=== PATIENT | female | born 1940 | race Caucasian/White ===

== ENCOUNTER 2018-11-05 18:41 | Inpatient (IN) | payer MEDICARE, BC, OTHER ==
[2018-11-06 01:03] LABS: WHITE BLOOD COUNT 8.6 10^3/ul (4.8-10.8)
[2018-11-06 01:03] LABS: ABNORMAL IP MESSAGE 1; HEMATOCRIT 35.8 % (37.0-47.0); HEMOGLOBIN 11.7 g/dl (12.0-16.0); MEAN CORPUSCULAR HEMOGLOBIN 29.7 pg (29.0-33.0); MEAN CORPUSCULAR HGB CONC 32.7 g/dl (32.0-37.0); MEAN CORPUSCULAR VOLUME 90.9 fl (82.0-101.0); MEAN PLATELET VOLUME 11.7 fl (7.4-10.4); PLATELET COUNT 63 10^3/UL (140-415); RED BLOOD COUNT 3.94 10^6/ul (4.20-5.40); RED CELL DISTRIBUTION WIDTH 15.2 % (11.5-14.5)
[2018-11-06 01:04] LABS: POSITIVE DIFF @See below
[2018-11-06 01:05] LABS: ADD MAN DIFF? YES
[2018-11-06 01:20] LABS: ALANINE AMINOTRANSFERASE 25 IU/L (13-69); ALBUMIN 3.3 g/dl (3.3-4.9); ALKALINE PHOSPHATASE 117 IU/L (42-121); ANION GAP 9 (5-13); ASPARTATE AMINO TRANSFERASE 29 IU/L (15-46); BILIRUBIN,INDIRECT 0.4 mg/dl (0-1.1); BILIRUBIN,TOTAL 0.4 mg/dl (0.2-1.3); BLOOD UREA NITROGEN 34 mg/dl (7-20); CALCIUM 7.7 mg/dl (8.4-10.2); CARBON DIOXIDE 29 mmol/L (21-31); CHLORIDE 98 mmol/L (97-110); CREATININE 1.36 mg/dl (0.44-1.00); GLUCOSE 197 mg/dl (70-220); POTASSIUM 4.3 mmol/L (3.5-5.1); SODIUM 136 mmol/L (135-144); TOTAL PROTEIN 6.6 g/dl (6.1-8.1)
[2018-11-06 01:25] LABS: INR 1.17; PROTIME 15.1 Sec (11.9-14.9); PT RATIO 1.2
[2018-11-06 01:26] LABS: PARTIAL THROMBOPLASTIN TIME 30.8 Sec (23.0-35.0)
[2018-11-06] MEDS: SOD CHLORIDE 0.9% 1,000 ML IV (01:27)
[2018-11-06 01:31] LABS: TROPONIN-I < 0.012 ng/ml (0.000-0.120)
[2018-11-06 01:33] LABS: BAND NEUTROPHILS #M 1.1 10^3/ul (0.0-0.6); BAND NEUTROPHILS % (M) 13 % (0-4); EOSINOPHILS % (M) 1 % (0-7); GIANT THROMBO% (M) 1 % (0-0); LYMPHOCYTES #M 0.4 10^3/ul (0.8-2.9); LYMPHOCYTES % (M) 5 % (15-51); METAMYELOCYTES %M 1 % (0-0); MONOCYTE #M 0.8 10^3/ul (0.3-0.9); MONOCYTES % (M) 10 % (0-11); PLATELET ESTIMATE SIG DECREASED; REACTIVE LYMPHOCYTES #M 0.3 10^3/ul (0.0-0.0); REACTIVE LYMPHOCYTES% (M) 4 % (0-0); SEG NEUT #M 5.8 10^3/ul (1.6-7.5); SEGMENTED NEUTROPHILS (M) % 66 % (39-77); SMUDGE%M 18 % (0-0)
[2018-11-06 02:20] LABS: ADD UMIC YES; UR AMORPHOUS CRYSTAL FEW /HPF (NONE SEEN); UR ASCORBIC ACID NEGATIVE (NEGATIVE); UR BACTERIA FEW /HPF (NONE SEEN); UR BILIRUBIN (Dip) NEGATIVE (NEGATIVE); UR BLOOD (Dip) 2+ mg/dL (NEGATIVE); UR CLARITY SLIGHTLY CLOUDY (CLEAR); UR COLOR YELLOW (YELLOW); UR GLUCOSE (Dip) NEGATIVE (NEGATIVE); UR KETONES (Dip) NEGATIVE (NEGATIVE); UR LEUKOCYTE ESTERASE (Dip) 3+ Leu/ul (NEGATIVE); UR NITRITE (Dip) NEGATIVE (NEGATIVE); UR NONSQUAMOUS EPITHELIAL CELL 1 /HPF (NONE SEEN); UR RBC 23 /HPF (0-5); UR SPECIFIC GRAVITY (Dip) 1.014 (1.003-1.030); UR SQUAMOUS EPITHELIAL CELL FEW /HPF (FEW); UR TOTAL PROTEIN (Dip) 2+ mg/dl (NEGATIVE); UR TRANSITIONAL EPI CELL FEW /HPF (NONE SEEN); UR UROBILINOGEN (Dip) 1+ mg/dL (NEGATIVE); UR WBC 147 /HPF (0-5)
[2018-11-06] MEDS: ACETAMINOPHEN 325 MG TAB PO ×3 (06:45→21:15)
[2018-11-06] MEDS ORDERED: CEFTRIAXONE 1 GM/50 ML (PMX) 50 ML IVPB (07:01)
[2018-11-06] MEDS: ALBUTEROL/IPRATROPIUM (NEB) 3 ML AMP HHN ×5 (07:21→21:08)
[2018-11-06 07:58] LABS: LACTIC ACID 3.7 mmol/L (0.5-2.0)
[2018-11-06] MEDS: NS + KCL 20 MEQ 1,000 ML IV ×2 (10:33→23:20)
[2018-11-06] MEDS: CEFTRIAXONE 1 GM/50 ML (PMX) 50 ML IVPB (10:34)
[2018-11-06] MEDS: METOPROLOL (XL) 100 MG TAB PO (10:48)
[2018-11-06] MEDS: LOSARTAN 50 MG TAB PO (10:49)
[2018-11-06] MEDS: AZITHROMYCIN 500MG/NS (PMX) 250 ML IVPB (13:21)
[2018-11-06 15:27] LABS: LACTIC ACID 1.4 mmol/L (0.5-2.0)
[2018-11-06 16:12] LABS: HAAIG REFLEX REFLEX FILED
[2018-11-06 16:21] LABS: PLATELET COUNT 57 10^3/UL (140-415)
[2018-11-06 16:43] LABS: INR 1.31; PARTIAL THROMBOPLASTIN TIME 30.4 Sec (23.0-35.0); PROTIME 16.5 Sec (11.9-14.9); PT RATIO 1.3
[2018-11-06 16:47] LABS: LACTATE DEHYDROGENASE 694 IU/L (313-618)
[2018-11-06 17:05] LABS: D-DIMER > 10000.00 ng/ml (<460)
[2018-11-06 17:07] LABS: HEPATITIS B SURFACE ANTIGEN NEGATIVE (NEGATIVE)
[2018-11-06 17:25] LABS: HEPATITIS B CORE ANTIBODY NEGATIVE (NEGATIVE); HEPATITIS C VIRAL ANTIBODY NEGATIVE (NEGATIVE); HIV 1&2 ANTIBODY NEGATIVE (NEGATIVE)
[2018-11-06 17:30] LABS: THROMBIN TIME 16.2 SEC (13.8-19.1)
[2018-11-06 17:51] LABS: FIBRIN SPLIT PRODUCT >10 and <40 ug/ml (<10)
[2018-11-07] MEDS: ACETAMINOPHEN 325 MG TAB PO (04:22)
[2018-11-07 06:12] LABS: WHITE BLOOD COUNT 10.1 10^3/ul (4.8-10.8)
[2018-11-07 06:12] LABS: ABNORMAL IP MESSAGE 1; HEMATOCRIT 30.6 % (37.0-47.0); HEMOGLOBIN 10.1 g/dl (12.0-16.0); MEAN CORPUSCULAR HEMOGLOBIN 29.6 pg (29.0-33.0); MEAN CORPUSCULAR VOLUME 89.7 fl (82.0-101.0); MEAN PLATELET VOLUME 12.3 fl (7.4-10.4); PLATELET COUNT 58 10^3/UL (140-415); RED BLOOD COUNT 3.41 10^6/ul (4.20-5.40); RED CELL DISTRIBUTION WIDTH 15.4 % (11.5-14.5)
[2018-11-07 06:32] LABS: ADD MAN DIFF? YES; POSITIVE DIFF @See below
[2018-11-07 07:04] LABS: ALANINE AMINOTRANSFERASE 36 IU/L (13-69); ALBUMIN 2.5 g/dl (3.3-4.9); ALBUMIN/GLOBULIN RATIO 0.83; ALKALINE PHOSPHATASE 126 IU/L (42-121); ANION GAP 5 (5-13); ASPARTATE AMINO TRANSFERASE 57 IU/L (15-46); BILIRUBIN,INDIRECT 0.3 mg/dl (0-1.1); BILIRUBIN,TOTAL 0.3 mg/dl (0.2-1.3); BLOOD UREA NITROGEN 27 mg/dl (7-20); CARBON DIOXIDE 24 mmol/L (21-31); CHLORIDE 111 mmol/L (97-110); CREATININE 1.05 mg/dl (0.44-1.00); GLUCOSE 99 mg/dl (70-220); POTASSIUM 4.2 mmol/L (3.5-5.1); SODIUM 140 mmol/L (135-144); TOTAL PROTEIN 5.5 g/dl (6.1-8.1)
[2018-11-07 07:44] LABS: BAND NEUTROPHILS #M 2.4 10^3/ul (0.0-0.6); BAND NEUTROPHILS % (M) 24 % (0-4); EOSINOPHILS % (M) 2 % (0-7); GIANT THROMBO% (M) 1 % (0-0); HYPOCHROMASIA 1+ (0-0); LYMPHOCYTES #M 0.2 10^3/ul (0.8-2.9); LYMPHOCYTES % (M) 2 % (15-51); MONOCYTE #M 0.5 10^3/ul (0.3-0.9); MONOCYTES % (M) 5 % (0-11); PLATELET ESTIMATE SIG DECREASED; REACTIVE LYMPHOCYTES #M 0.2 10^3/ul (0.0-0.0); REACTIVE LYMPHOCYTES% (M) 2 % (0-0); SEG NEUT #M 6.8 10^3/ul (1.6-7.5); SEGMENTED NEUTROPHILS (M) % 65 % (39-77); SMUDGE%M 7 % (0-0); SPHEROCYTES 1+ (0-0)
[2018-11-07] MEDS: LOSARTAN 50 MG TAB PO (08:45)
[2018-11-07] MEDS: CEFTRIAXONE 1 GM/50 ML (PMX) 50 ML IVPB (08:45)
[2018-11-07] MEDS: METOPROLOL (XL) 100 MG TAB PO ×2 (08:46→20:28)
[2018-11-07] MEDS: ALBUTEROL/IPRATROPIUM (NEB) 3 ML AMP HHN ×4 (08:48→20:39)
[2018-11-07] MEDS: HYDROCODONE/APAP (5/325) TAB PO ×2 (10:29→18:34)
[2018-11-07] MEDS: AZITHROMYCIN 500MG/NS (PMX) 250 ML IVPB (10:30)
[2018-11-07] MEDS: NS + KCL 20 MEQ 1,000 ML IV (11:59)
[2018-11-07] MEDS: ONDANSETRON 4 MG INJ IV (12:38)
[2018-11-07] MEDS: PANTOPRAZOLE 40 MG INJ IV (15:29)
[2018-11-08] MEDS: NS + KCL 20 MEQ 1,000 ML IV ×2 (02:25→16:22)
[2018-11-08] MEDS: PANTOPRAZOLE 40 MG INJ IV (05:30)
[2018-11-08] MEDS: HYDROCODONE/APAP (5/325) TAB PO ×2 (05:35→12:15)
[2018-11-08 06:21] LABS: WHITE BLOOD COUNT 12.8 10^3/ul (4.8-10.8)
[2018-11-08 06:21] LABS: ABNORMAL IP MESSAGE 1; HEMATOCRIT 34.4 % (37.0-47.0); HEMOGLOBIN 11.1 g/dl (12.0-16.0); MEAN CORPUSCULAR HEMOGLOBIN 29.4 pg (29.0-33.0); MEAN CORPUSCULAR HGB CONC 32.3 g/dl (32.0-37.0); MEAN PLATELET VOLUME 12.2 fl (7.4-10.4); PLATELET COUNT 70 10^3/UL (140-415); RED BLOOD COUNT 3.78 10^6/ul (4.20-5.40)
[2018-11-08 06:28] LABS: ADD MAN DIFF? YES; POSITIVE DIFF @See below
[2018-11-08 06:38] LABS: ANION GAP 6 (5-13); BLOOD UREA NITROGEN 18 mg/dl (7-20); CARBON DIOXIDE 23 mmol/L (21-31); CHLORIDE 114 mmol/L (97-110); CREATININE 0.99 mg/dl (0.44-1.00); GLUCOSE 124 mg/dl (70-220); POTASSIUM 4.6 mmol/L (3.5-5.1); SODIUM 143 mmol/L (135-144)
[2018-11-08 07:34] LABS: ANISOCYTOSIS 1+ (0-0); BAND NEUTROPHILS #M 0.7 10^3/ul (0.0-0.6); BAND NEUTROPHILS % (M) 6 % (0-4); BASOPHIL #M 0.1 10^3/ul (0.0-0.0); BASOPHILS % (M) 1 % (0-2); EOSINOPHILS % (M) 1 % (0-7); LYMPHOCYTES #M 0.7 10^3/ul (0.8-2.9); LYMPHOCYTES % (M) 6 % (15-51); MONOCYTE #M 0.6 10^3/ul (0.3-0.9); MONOCYTES % (M) 5 % (0-11); MYELOCYTES #M 0.2 10^3/ul (0.0-0.0); MYELOCYTES % (M) 2 % (0-0); PLATELET ESTIMATE DECREASED; PLATELET MORPHOLOGY COMMENT @See below; POLYCHROMASIA 1+ (0-0); PROMYELOCYTES #M 0.1 10^3/ul (0-0); PROMYELOCYTES % (M) 1 % (0-0); SEG NEUT #M 10.1 10^3/ul (1.6-7.5); SEGMENTED NEUTROPHILS (M) % 78 % (39-77); SMUDGE%M 34 % (0-0)
[2018-11-08] MEDS: CEFTRIAXONE 1 GM/50 ML (PMX) 50 ML IVPB (08:18)
[2018-11-08] MEDS: METOPROLOL (XL) 100 MG TAB PO ×2 (08:19→20:58)
[2018-11-08] MEDS: LOSARTAN 50 MG TAB PO (08:19)
[2018-11-08] MEDS: ALBUTEROL/IPRATROPIUM (NEB) 3 ML AMP HHN ×4 (09:03→20:26)
[2018-11-08] MEDS: AZITHROMYCIN 500MG/NS (PMX) 250 ML IVPB (10:07)
[2018-11-08 14:36] LABS: HAPTOGLOBIN 142 mg/dL (43-212)
[2018-11-08] MEDS: DOCUSATE SODIUM 100 MG CAP PO ×2 (16:55→20:56)
[2018-11-09 05:22] LABS: ADD MAN DIFF? NO
[2018-11-09 05:26] LABS: ABNORMAL IP MESSAGE 1; BASOPHILS % 0.4 % (0.0-2.0); EOSINOPHILS # 0.2 10^3/ul (0.0-0.5); EOSINOPHILS % 1.4 % (0.0-7.0); HEMOGLOBIN 9.2 g/dl (12.0-16.0); LYMPHOCYTES # 0.7 10^3/ul (0.8-2.9); LYMPHOCYTES % 5.9 % (15.0-51.0); MEAN CORPUSCULAR HGB CONC 32.9 g/dl (32.0-37.0); MEAN CORPUSCULAR VOLUME 91.2 fl (82.0-101.0); MONOCYTE # 1.3 10^3/ul (0.3-0.9); MONOCYTES % 11.4 % (0.0-11.0); NEUTROPHIL # 8.9 10^3/ul (1.6-7.5); NEUTROPHILS % 79.8 % (39.0-77.0); PLATELET COUNT 80 10^3/UL (140-415); RED BLOOD COUNT 3.07 10^6/ul (4.20-5.40); RED CELL DISTRIBUTION WIDTH 16.7 % (11.5-14.5)
[2018-11-09 05:26] LABS: WHITE BLOOD COUNT 11.1 10^3/ul (4.8-10.8)
[2018-11-09] MEDS: PANTOPRAZOLE 40 MG INJ IV (05:34)
[2018-11-09 06:25] LABS: POSITIVE DIFF @See below
[2018-11-09] MEDS: NS + KCL 20 MEQ 1,000 ML IV (06:34)
[2018-11-09 06:48] LABS: ANION GAP 3 (5-13); BLOOD UREA NITROGEN 17 mg/dl (7-20); CALCIUM 6.2 mg/dl (8.4-10.2); CARBON DIOXIDE 22 mmol/L (21-31); CHLORIDE 115 mmol/L (97-110); CREATININE 0.85 mg/dl (0.44-1.00); GLUCOSE 110 mg/dl (70-220); POTASSIUM 5.2 mmol/L (3.5-5.1); SODIUM 140 mmol/L (135-144)
[2018-11-09] MEDS: DOCUSATE SODIUM 100 MG CAP PO ×2 (08:58→20:50)
[2018-11-09] MEDS: METOPROLOL (XL) 100 MG TAB PO ×2 (08:59→20:51)
[2018-11-09] MEDS: LOSARTAN 50 MG TAB PO (08:59)
[2018-11-09] MEDS: CEFTRIAXONE 1 GM/50 ML (PMX) 50 ML IVPB (09:05)
[2018-11-09] MEDS: ALBUTEROL/IPRATROPIUM (NEB) 3 ML AMP HHN ×4 (09:12→20:45)
[2018-11-09] MEDS: AZITHROMYCIN 500MG/NS (PMX) 250 ML IVPB (10:12)
[2018-11-09] MEDS ORDERED: MAGNESIUM HYDROXIDE 30ML CUP PO (15:30)
[2018-11-09] MEDS: NYSTATIN SUSP 5 ML CUP PO ×2 (16:16→20:52)
[2018-11-09] MEDS: SOD CHLORIDE 0.9% 1,000 ML IV (16:16)
[2018-11-10 05:59] LABS: WHITE BLOOD COUNT 10.8 10^3/ul (4.8-10.8)
[2018-11-10 05:59] LABS: HEMATOCRIT 26.4 % (37.0-47.0); HEMOGLOBIN 8.7 g/dl (12.0-16.0); MEAN CORPUSCULAR HEMOGLOBIN 29.8 pg (29.0-33.0); MEAN CORPUSCULAR VOLUME 90.4 fl (82.0-101.0); MEAN PLATELET VOLUME 11.7 fl (7.4-10.4); PLATELET COUNT 106 10^3/UL (140-415); RED BLOOD COUNT 2.92 10^6/ul (4.20-5.40); RED CELL DISTRIBUTION WIDTH 16.5 % (11.5-14.5)
[2018-11-10] MEDS: PANTOPRAZOLE 40 MG INJ IV (06:04)
[2018-11-10 06:23] LABS: ADD MAN DIFF? YES
[2018-11-10 06:24] LABS: ANION GAP 4 (5-13); BLOOD UREA NITROGEN 16 mg/dl (7-20); CARBON DIOXIDE 20 mmol/L (21-31); CHLORIDE 112 mmol/L (97-110); CREATININE 0.83 mg/dl (0.44-1.00); GLUCOSE 109 mg/dl (70-220); POTASSIUM 4.3 mmol/L (3.5-5.1); SODIUM 136 mmol/L (135-144)
[2018-11-10] MEDS: SOD CHLORIDE 0.9% 1,000 ML IV (08:10)
[2018-11-10] MEDS: ALBUTEROL/IPRATROPIUM (NEB) 3 ML AMP HHN ×4 (08:57→20:35)
[2018-11-10] MEDS: NYSTATIN SUSP 5 ML CUP PO ×4 (09:29→20:51)
[2018-11-10] MEDS: LOSARTAN 50 MG TAB PO (09:29)
[2018-11-10] MEDS: FERROUS SULFATE (EC) 325 MG TAB PO ×2 (09:29→20:51)
[2018-11-10] MEDS: METOPROLOL (XL) 100 MG TAB PO ×2 (09:29→20:51)
[2018-11-10] MEDS: DOCUSATE SODIUM 100 MG CAP PO ×2 (09:29→20:51)
[2018-11-10] MEDS: CEFTRIAXONE 1 GM/50 ML (PMX) 50 ML IVPB (09:29)
[2018-11-10 10:02] LABS: ANISOCYTOSIS 1+ (0-0); BAND NEUTROPHILS #M 0.5 10^3/ul (0.0-0.6); BAND NEUTROPHILS % (M) 5 % (0-4); EOSINOPHILS % (M) 3 % (0-7); GIANT THROMBO% (M) 2 % (0-0); LYMPHOCYTES #M 0.2 10^3/ul (0.8-2.9); LYMPHOCYTES % (M) 2 % (15-51); METAMYELOCYTES #M 0.1 10^3/ul (0.0-0.0); METAMYELOCYTES %M 1 % (0-0); MONOCYTE #M 0.5 10^3/ul (0.3-0.9); MONOCYTES % (M) 5 % (0-11); PLATELET ESTIMATE DECREASED; SEG NEUT #M 9.1 10^3/ul (1.6-7.5); SEGMENTED NEUTROPHILS (M) % 84 % (39-77); SMUDGE%M 46 % (0-0)
[2018-11-10] MEDS: GUAIFENESIN 20 MG/ML 5ML CUP PO (12:33)
[2018-11-10] MEDS: FUROSEMIDE 20 MG INJ IV (12:55)
[2018-11-10] MEDS: AZITHROMYCIN 500MG/NS (PMX) 250 ML IVPB (14:33)
[2018-11-11 04:54] LABS: ADD MAN DIFF? NO
[2018-11-11 05:00] LABS: BASOPHILS % 0.2 % (0.0-2.0); EOSINOPHILS # 0.3 10^3/ul (0.0-0.5); EOSINOPHILS % 2.9 % (0.0-7.0); HEMATOCRIT 26.4 % (37.0-47.0); HEMOGLOBIN 8.9 g/dl (12.0-16.0); LYMPHOCYTES % 9.5 % (15.0-51.0); MEAN CORPUSCULAR HEMOGLOBIN 29.9 pg (29.0-33.0); MEAN CORPUSCULAR HGB CONC 33.7 g/dl (32.0-37.0); MEAN CORPUSCULAR VOLUME 88.6 fl (82.0-101.0); MEAN PLATELET VOLUME 11.6 fl (7.4-10.4); MONOCYTE # 1.4 10^3/ul (0.3-0.9); MONOCYTES % 12.7 % (0.0-11.0); NEUTROPHIL # 7.8 10^3/ul (1.6-7.5); NEUTROPHILS % 72.8 % (39.0-77.0); PLATELET COUNT 131 10^3/UL (140-415); RED BLOOD COUNT 2.98 10^6/ul (4.20-5.40)
[2018-11-11 05:00] LABS: WHITE BLOOD COUNT 10.8 10^3/ul (4.8-10.8)
[2018-11-11] MEDS: PANTOPRAZOLE 40 MG INJ IV (05:16)
[2018-11-11 05:23] LABS: ANION GAP 7 (5-13); BLOOD UREA NITROGEN 16 mg/dl (7-20); CARBON DIOXIDE 24 mmol/L (21-31); CHLORIDE 108 mmol/L (97-110); CREATININE 0.77 mg/dl (0.44-1.00); GLUCOSE 122 mg/dl (70-220); POTASSIUM 4.1 mmol/L (3.5-5.1); SODIUM 139 mmol/L (135-144)
[2018-11-11] MEDS: FERROUS SULFATE (EC) 325 MG TAB PO ×2 (08:33→21:30)
[2018-11-11] MEDS: DOCUSATE SODIUM 100 MG CAP PO ×2 (08:33→21:30)
[2018-11-11] MEDS: METOPROLOL (XL) 100 MG TAB PO ×2 (08:33→21:30)
[2018-11-11] MEDS: LOSARTAN 50 MG TAB PO (08:34)
[2018-11-11] MEDS: ALBUTEROL/IPRATROPIUM (NEB) 3 ML AMP HHN ×4 (09:09→20:07)
[2018-11-11] MEDS: NYSTATIN SUSP 5 ML CUP PO ×4 (09:43→21:32)
[2018-11-11] MEDS: CEFTRIAXONE 1 GM/50 ML (PMX) 50 ML IVPB (09:43)
[2018-11-11] MEDS: AZITHROMYCIN 500MG/NS (PMX) 250 ML IVPB (10:23)
[2018-11-12 05:06] LABS: ADD MAN DIFF? NO
[2018-11-12 05:11] LABS: WHITE BLOOD COUNT 11.3 10^3/ul (4.8-10.8)
[2018-11-12 05:11] LABS: ABNORMAL IP MESSAGE 1; BASOPHILS % 0.2 % (0.0-2.0); EOSINOPHILS # 0.3 10^3/ul (0.0-0.5); EOSINOPHILS % 2.6 % (0.0-7.0); HEMATOCRIT 26.1 % (37.0-47.0); HEMOGLOBIN 8.8 g/dl (12.0-16.0); LYMPHOCYTES % 8.5 % (15.0-51.0); MEAN CORPUSCULAR HEMOGLOBIN 29.6 pg (29.0-33.0); MEAN CORPUSCULAR HGB CONC 33.7 g/dl (32.0-37.0); MEAN CORPUSCULAR VOLUME 87.9 fl (82.0-101.0); MEAN PLATELET VOLUME 10.8 fl (7.4-10.4); MONOCYTE # 1.6 10^3/ul (0.3-0.9); MONOCYTES % 14.5 % (0.0-11.0); NEUTROPHIL # 8.2 10^3/ul (1.6-7.5); NEUTROPHILS % 72.3 % (39.0-77.0); PLATELET COUNT 163 10^3/UL (140-415); RED BLOOD COUNT 2.97 10^6/ul (4.20-5.40); RED CELL DISTRIBUTION WIDTH 16.5 % (11.5-14.5)
[2018-11-12 05:24] LABS: POSITIVE DIFF @See below
[2018-11-12 05:41] LABS: ANION GAP 4 (5-13); BLOOD UREA NITROGEN 10 mg/dl (7-20); CARBON DIOXIDE 24 mmol/L (21-31); CHLORIDE 109 mmol/L (97-110); CREATININE 0.75 mg/dl (0.44-1.00); GLUCOSE 133 mg/dl (70-220); POTASSIUM 3.8 mmol/L (3.5-5.1); SODIUM 137 mmol/L (135-144)
[2018-11-12] MEDS: PANTOPRAZOLE 40 MG INJ IV (06:07)
[2018-11-12] MEDS: HYDROCODONE/APAP (5/325) TAB PO (07:34)
[2018-11-12] MEDS: ALBUTEROL/IPRATROPIUM (NEB) 3 ML AMP HHN ×4 (08:36→21:12)
[2018-11-12] MEDS: FERROUS SULFATE (EC) 325 MG TAB PO ×2 (09:48→20:26)
[2018-11-12] MEDS: METOPROLOL (XL) 100 MG TAB PO ×2 (09:49→20:27)
[2018-11-12] MEDS: LOSARTAN 50 MG TAB PO (09:50)
[2018-11-12] MEDS: DOCUSATE SODIUM 100 MG CAP PO ×2 (09:50→20:26)
[2018-11-12] MEDS: CEFTRIAXONE 1 GM/50 ML (PMX) 50 ML IVPB (09:50)
[2018-11-12] MEDS: NYSTATIN SUSP 5 ML CUP PO ×4 (09:50→20:27)
[2018-11-12] MEDS: AZITHROMYCIN 500MG/NS (PMX) 250 ML IVPB (11:12)
[2018-11-12] MEDS: CEPHALEXIN 500 MG CAP PO ×2 (14:14→21:45)
[2018-11-13 04:57] LABS: ADD MAN DIFF? NO
[2018-11-13 05:07] LABS: BASOPHILS % 0.3 % (0.0-2.0); EOSINOPHILS # 0.2 10^3/ul (0.0-0.5); EOSINOPHILS % 2.3 % (0.0-7.0); HEMATOCRIT 27.4 % (37.0-47.0); HEMOGLOBIN 9.2 g/dl (12.0-16.0); LYMPHOCYTES % 10.2 % (15.0-51.0); MEAN CORPUSCULAR HEMOGLOBIN 29.9 pg (29.0-33.0); MEAN CORPUSCULAR HGB CONC 33.6 g/dl (32.0-37.0); MEAN PLATELET VOLUME 10.9 fl (7.4-10.4); MONOCYTE # 1.3 10^3/ul (0.3-0.9); MONOCYTES % 13.1 % (0.0-11.0); NEUTROPHIL # 7.2 10^3/ul (1.6-7.5); NEUTROPHILS % 72.8 % (39.0-77.0); PLATELET COUNT 200 10^3/UL (140-415); RED BLOOD COUNT 3.08 10^6/ul (4.20-5.40); RED CELL DISTRIBUTION WIDTH 16.1 % (11.5-14.5)
[2018-11-13 05:07] LABS: WHITE BLOOD COUNT 9.9 10^3/ul (4.8-10.8)
[2018-11-13] MEDS: CEPHALEXIN 500 MG CAP PO ×3 (06:02→21:56)
[2018-11-13] MEDS: PANTOPRAZOLE (EC) 40 MG TAB PO (06:02)
[2018-11-13] MEDS: METOPROLOL (XL) 100 MG TAB PO ×2 (08:09→21:53)
[2018-11-13] MEDS: FERROUS SULFATE (EC) 325 MG TAB PO ×2 (08:10→21:52)
[2018-11-13] MEDS: DOCUSATE SODIUM 100 MG CAP PO ×2 (08:10→21:52)
[2018-11-13] MEDS: NYSTATIN SUSP 5 ML CUP PO ×4 (08:10→21:53)
[2018-11-13] MEDS: LOSARTAN 50 MG TAB PO (08:11)
[2018-11-13] MEDS: ALBUTEROL/IPRATROPIUM (NEB) 3 ML AMP HHN ×4 (08:49→21:47)
[2018-11-13 10:34] LABS: OCCULT BLOOD STOOL NEGATIVE (NEGATIVE)
[2018-11-13] MEDS: GUAIFENESIN 20 MG/ML 5ML CUP PO (10:58)
[2018-11-13] MEDS: ACETAMINOPHEN 325 MG TAB PO (12:41)
[2018-11-14 05:56] LABS: ADD MAN DIFF? NO
[2018-11-14 05:57] LABS: WHITE BLOOD COUNT 8.7 10^3/ul (4.8-10.8)
[2018-11-14 05:57] LABS: BASOPHILS % 0.5 % (0.0-2.0); EOSINOPHILS # 0.2 10^3/ul (0.0-0.5); EOSINOPHILS % 1.8 % (0.0-7.0); HEMOGLOBIN 9.2 g/dl (12.0-16.0); LYMPHOCYTES # 1.2 10^3/ul (0.8-2.9); LYMPHOCYTES % 13.8 % (15.0-51.0); MEAN CORPUSCULAR HGB CONC 34.1 g/dl (32.0-37.0); MEAN CORPUSCULAR VOLUME 87.9 fl (82.0-101.0); MEAN PLATELET VOLUME 10.9 fl (7.4-10.4); MONOCYTE # 0.9 10^3/ul (0.3-0.9); MONOCYTES % 10.8 % (0.0-11.0); NEUTROPHIL # 6.2 10^3/ul (1.6-7.5); NEUTROPHILS % 71.6 % (39.0-77.0); PLATELET COUNT 246 10^3/UL (140-415); RED BLOOD COUNT 3.07 10^6/ul (4.20-5.40); RED CELL DISTRIBUTION WIDTH 16.4 % (11.5-14.5)
[2018-11-14] MEDS: PANTOPRAZOLE (EC) 40 MG TAB PO (06:10)
[2018-11-14] MEDS: CEPHALEXIN 500 MG CAP PO ×2 (06:10→14:14)
[2018-11-14 06:16] LABS: ANION GAP 8 (5-13); BLOOD UREA NITROGEN 8 mg/dl (7-20); CALCIUM 6.5 mg/dl (8.4-10.2); CARBON DIOXIDE 23 mmol/L (21-31); CHLORIDE 107 mmol/L (97-110); CREATININE 0.67 mg/dl (0.44-1.00); GLUCOSE 117 mg/dl (70-220); POTASSIUM 4.3 mmol/L (3.5-5.1); SODIUM 138 mmol/L (135-144)
[2018-11-14] MEDS: ALBUTEROL/IPRATROPIUM (NEB) 3 ML AMP HHN ×2 (07:51→13:35)
[2018-11-14] MEDS: NYSTATIN SUSP 5 ML CUP PO ×2 (08:39→14:14)
[2018-11-14] MEDS: LOSARTAN 50 MG TAB PO (08:39)
[2018-11-14] MEDS: DOCUSATE SODIUM 100 MG CAP PO (08:39)
[2018-11-14] MEDS: FERROUS SULFATE (EC) 325 MG TAB PO (08:39)
[2018-11-14] MEDS: METOPROLOL (XL) 100 MG TAB PO (08:39)
== END 2018-11-14 16:13 | disposition home or self-care (01) | DRG 872 ==
LOC: E/R 18:41 → PP2 11-13 18:31 → 6WM 11-06 03:13
DX: A41.51 Sepsis due to Escherichia coli [E. coli] (principal); N39.0 Urinary tract infection, site not specified; S37.021A Major contusion of right kidney, initial encounter; N17.9 Acute kidney failure, unspecified; D69.6 Thrombocytopenia, unspecified; M06.9 Rheumatoid arthritis, unspecified; D64.9 Anemia, unspecified; W01.0XXA Fall on same level from slipping, tripping and stumbling without subsequent striking against object, initial encounter; Y92.018 Other place in single-family (private) house as the place of occurrence of the external cause; I10 Essential (primary) hypertension; E87.5 Hyperkalemia; J40 Bronchitis, not specified as acute or chronic
CPT/HCPCS: 36415; 71045; 71110; 74176; 76775; 80048; 80053; 81001; 82270; 83010; 83605; 83615; 84484; 85025; 85049; 85362; 85378; 85384; 85610; 85670; 85730; 86703; 86704; 86709; 86803; 87040; 87086; 87340; 93005; 93971; 94640; 94664; 97116; 97162; 97530; 99285-25

== ENCOUNTER 2018-12-29 14:36 | Inpatient (IN) | payer MEDICARE, BC ==
[2018-12-29 15:46] LABS: ADD MAN DIFF? NO
[2018-12-29] MEDS: morphine 4 MG/ML VIAL IV ×2 (15:49→19:21)
[2018-12-29] MEDS: ONDANSETRON 4 MG INJ IV (15:49)
[2018-12-29] MEDS: SOD CHLORIDE 0.9% 500 ML IV (15:50)
[2018-12-29 15:56] LABS: ADD UMIC YES; UR ASCORBIC ACID NEGATIVE (NEGATIVE); UR BILIRUBIN (Dip) NEGATIVE (NEGATIVE); UR BLOOD (Dip) 1+ mg/dL (NEGATIVE); UR CLARITY CLEAR (CLEAR); UR COLOR STRAW (YELLOW); UR GLUCOSE (Dip) NEGATIVE (NEGATIVE); UR KETONES (Dip) NEGATIVE (NEGATIVE); UR LEUKOCYTE ESTERASE (Dip) NEGATIVE Leu/ul (NEGATIVE); UR NITRITE (Dip) NEGATIVE (NEGATIVE); UR RBC 6 /HPF (0-5); UR SPECIFIC GRAVITY (Dip) 1.009 (1.003-1.030); UR SQUAMOUS EPITHELIAL CELL FEW /HPF (FEW); UR TOTAL PROTEIN (Dip) NEGATIVE (NEGATIVE); UR UROBILINOGEN (Dip) NEGATIVE (NEGATIVE); UR WBC 2 /HPF (0-5)
[2018-12-29 16:10] LABS: PROTIME 14.3 Sec (11.9-14.9); PT RATIO 1.1
[2018-12-29 16:11] LABS: PARTIAL THROMBOPLASTIN TIME 30.1 Sec (23.0-35.0)
[2018-12-29 16:20] LABS: WHITE BLOOD COUNT 10.9 10^3/ul (4.8-10.8)
[2018-12-29 16:20] LABS: BASOPHILS % 0.3 % (0.0-2.0); EOSINOPHILS # 0.1 10^3/ul (0.0-0.5); EOSINOPHILS % 0.6 % (0.0-7.0); HEMATOCRIT 33.4 % (37.0-47.0); HEMOGLOBIN 10.9 g/dl (12.0-16.0); LYMPHOCYTES # 0.8 10^3/ul (0.8-2.9); LYMPHOCYTES % 7.5 % (15.0-51.0); MEAN CORPUSCULAR HEMOGLOBIN 28.9 pg (29.0-33.0); MEAN CORPUSCULAR HGB CONC 32.6 g/dl (32.0-37.0); MEAN CORPUSCULAR VOLUME 88.6 fl (82.0-101.0); MEAN PLATELET VOLUME 9.5 fl (7.4-10.4); MONOCYTES % 8.8 % (0.0-11.0); NEUTROPHIL # 8.9 10^3/ul (1.6-7.5); NEUTROPHILS % 82.1 % (39.0-77.0); PLATELET COUNT 234 10^3/UL (140-415); RED BLOOD COUNT 3.77 10^6/ul (4.20-5.40); RED CELL DISTRIBUTION WIDTH 14.3 % (11.5-14.5)
[2018-12-29 16:47] LABS: ALANINE AMINOTRANSFERASE 12 IU/L (13-69); ALBUMIN 3.7 g/dl (3.3-4.9); ALBUMIN/GLOBULIN RATIO 0.84; ALKALINE PHOSPHATASE 72 IU/L (42-121); ANION GAP 6 (5-13); ASPARTATE AMINO TRANSFERASE 26 IU/L (15-46); BILIRUBIN,INDIRECT 0.3 mg/dl (0-1.1); BILIRUBIN,TOTAL 0.3 mg/dl (0.2-1.3); BLOOD UREA NITROGEN 15 mg/dl (7-20); CALCIUM 9.7 mg/dl (8.4-10.2); CARBON DIOXIDE 33 mmol/L (21-31); CHLORIDE 94 mmol/L (97-110); CREATININE 0.84 mg/dl (0.44-1.00); GLUCOSE 117 mg/dl (70-220); POTASSIUM 4.4 mmol/L (3.5-5.1); SODIUM 133 mmol/L (135-144); TOTAL PROTEIN 8.1 g/dl (6.1-8.1)
[2018-12-29 16:58] LABS: TROPONIN-I < 0.012 ng/ml (0.000-0.120)
[2018-12-29] MEDS: SOD CHLORIDE 0.9% 100 ML (18:19)
[2018-12-29] MEDS: IOHEXOL 300MG/ML 150 ML BTL (18:19)
[2018-12-29] MEDS ORDERED: ONDANSETRON 4 MG INJ IV (19:00)
[2018-12-29] MEDS ORDERED: ACETAMINOPHEN 325 MG TAB PO (19:00)
[2018-12-29] MEDS: CEFEPIME 1GM/50 ML (PMX) 50 ML IVPB (19:15)
[2018-12-29] MEDS: traMADol 50 MG TAB PO (23:08)
[2018-12-29] MEDS: METOPROLOL (XL) 100 MG TAB PO (23:51)
[2018-12-30 05:44] LABS: ADD MAN DIFF? NO
[2018-12-30 05:47] LABS: WHITE BLOOD COUNT 12.8 10^3/ul (4.8-10.8)
[2018-12-30 05:47] LABS: ABNORMAL IP MESSAGE 1; BASOPHILS % 0.3 % (0.0-2.0); EOSINOPHILS # 0.1 10^3/ul (0.0-0.5); EOSINOPHILS % 1.1 % (0.0-7.0); HEMATOCRIT 32.7 % (37.0-47.0); HEMOGLOBIN 10.6 g/dl (12.0-16.0); LYMPHOCYTES # 1.1 10^3/ul (0.8-2.9); LYMPHOCYTES % 8.5 % (15.0-51.0); MEAN CORPUSCULAR HEMOGLOBIN 28.5 pg (29.0-33.0); MEAN CORPUSCULAR HGB CONC 32.4 g/dl (32.0-37.0); MEAN CORPUSCULAR VOLUME 87.9 fl (82.0-101.0); MONOCYTE # 1.8 10^3/ul (0.3-0.9); MONOCYTES % 14.2 % (0.0-11.0); NEUTROPHIL # 9.7 10^3/ul (1.6-7.5); NEUTROPHILS % 75.5 % (39.0-77.0); PLATELET COUNT 240 10^3/UL (140-415); RED BLOOD COUNT 3.72 10^6/ul (4.20-5.40); RED CELL DISTRIBUTION WIDTH 14.2 % (11.5-14.5)
[2018-12-30 06:12] LABS: POSITIVE DIFF @See below
[2018-12-30 06:22] LABS: ALANINE AMINOTRANSFERASE 17 IU/L (13-69); ALBUMIN 3.3 g/dl (3.3-4.9); ALBUMIN/GLOBULIN RATIO 0.76; ALKALINE PHOSPHATASE 60 IU/L (42-121); ANION GAP 13 (5-13); ASPARTATE AMINO TRANSFERASE 21 IU/L (15-46); BILIRUBIN,INDIRECT 0.4 mg/dl (0-1.1); BILIRUBIN,TOTAL 0.4 mg/dl (0.2-1.3); BLOOD UREA NITROGEN 12 mg/dl (7-20); CALCIUM 9.3 mg/dl (8.4-10.2); CARBON DIOXIDE 29 mmol/L (21-31); CHLORIDE 90 mmol/L (97-110); CREATININE 0.87 mg/dl (0.44-1.00); GLUCOSE 100 mg/dl (70-220); POTASSIUM 4.2 mmol/L (3.5-5.1); SODIUM 132 mmol/L (135-144); TOTAL PROTEIN 7.6 g/dl (6.1-8.1)
[2018-12-30] MEDS: METOPROLOL (XL) 100 MG TAB PO ×2 (09:00→21:57)
[2018-12-30] MEDS: SOD CHLORIDE 0.45% 1,000 ML IV (09:42)
[2018-12-30] MEDS: CEFEPIME 1GM/50 ML (PMX) 50 ML IVPB ×2 (09:42→21:57)
[2018-12-30] MEDS: LOSARTAN 50 MG TAB PO (09:43)
[2018-12-30] MEDS: LIDOCAINE 2% (SDV) 5 ML INJ (11:42)
[2018-12-30] MEDS: FENTAnyl 50 MCG/ML VIAL (12:47)
[2018-12-30] MEDS: POTASSIUM CHLORIDE 10 MEQ in SOD CHLORIDE 0.9% 1,000 ML IV (21:54)
[2018-12-31] MEDS: SOD CHLORIDE 0.45% 1,000 ML IV (01:31)
[2018-12-31] MEDS: traMADol 50 MG TAB PO (05:39)
[2018-12-31 05:44] LABS: ADD MAN DIFF? NO
[2018-12-31 05:58] LABS: WHITE BLOOD COUNT 9.2 10^3/ul (4.8-10.8)
[2018-12-31 05:58] LABS: BASOPHILS % 0.3 % (0.0-2.0); EOSINOPHILS # 0.1 10^3/ul (0.0-0.5); EOSINOPHILS % 1.2 % (0.0-7.0); HEMATOCRIT 31.3 % (37.0-47.0); HEMOGLOBIN 10.5 g/dl (12.0-16.0); LYMPHOCYTES # 1.1 10^3/ul (0.8-2.9); LYMPHOCYTES % 11.8 % (15.0-51.0); MEAN CORPUSCULAR HEMOGLOBIN 29.4 pg (29.0-33.0); MEAN CORPUSCULAR HGB CONC 33.5 g/dl (32.0-37.0); MEAN CORPUSCULAR VOLUME 87.7 fl (82.0-101.0); MEAN PLATELET VOLUME 9.8 fl (7.4-10.4); MONOCYTE # 1.1 10^3/ul (0.3-0.9); MONOCYTES % 11.8 % (0.0-11.0); NEUTROPHIL # 6.9 10^3/ul (1.6-7.5); NEUTROPHILS % 74.5 % (39.0-77.0); PLATELET COUNT 234 10^3/UL (140-415); RED BLOOD COUNT 3.57 10^6/ul (4.20-5.40); RED CELL DISTRIBUTION WIDTH 14.2 % (11.5-14.5)
[2018-12-31 06:46] LABS: ANION GAP 11 (5-13); BLOOD UREA NITROGEN 14 mg/dl (7-20); CALCIUM 8.5 mg/dl (8.4-10.2); CARBON DIOXIDE 27 mmol/L (21-31); CHLORIDE 94 mmol/L (97-110); CREATININE 0.83 mg/dl (0.44-1.00); GLUCOSE 121 mg/dl (70-220); POTASSIUM 4.3 mmol/L (3.5-5.1); SODIUM 132 mmol/L (135-144)
[2018-12-31] MEDS: POTASSIUM CHLORIDE 10 MEQ in SOD CHLORIDE 0.9% 1,000 ML IV ×2 (06:54→13:22)
[2018-12-31] MEDS: LOSARTAN 50 MG TAB PO (08:57)
[2018-12-31] MEDS: METOPROLOL (XL) 100 MG TAB PO ×2 (09:00→21:50)
[2018-12-31] MEDS: CEFEPIME 1GM/50 ML (PMX) 50 ML IVPB ×2 (09:02→22:20)
[2019-01-01] MEDS: POTASSIUM CHLORIDE 10 MEQ in SOD CHLORIDE 0.9% 1,000 ML IV (03:04)
[2019-01-01 05:37] LABS: ADD MAN DIFF? NO
[2019-01-01 05:42] LABS: WHITE BLOOD COUNT 10.5 10^3/ul (4.8-10.8)
[2019-01-01 05:42] LABS: BASOPHILS % 0.2 % (0.0-2.0); EOSINOPHILS # 0.1 10^3/ul (0.0-0.5); HEMATOCRIT 29.1 % (37.0-47.0); HEMOGLOBIN 9.5 g/dl (12.0-16.0); LYMPHOCYTES # 1.1 10^3/ul (0.8-2.9); LYMPHOCYTES % 10.2 % (15.0-51.0); MEAN CORPUSCULAR HEMOGLOBIN 28.9 pg (29.0-33.0); MEAN CORPUSCULAR HGB CONC 32.6 g/dl (32.0-37.0); MEAN CORPUSCULAR VOLUME 88.4 fl (82.0-101.0); MEAN PLATELET VOLUME 9.7 fl (7.4-10.4); MONOCYTE # 1.2 10^3/ul (0.3-0.9); MONOCYTES % 11.2 % (0.0-11.0); NEUTROPHIL # 8.1 10^3/ul (1.6-7.5); NEUTROPHILS % 76.9 % (39.0-77.0); PLATELET COUNT 242 10^3/UL (140-415); RED BLOOD COUNT 3.29 10^6/ul (4.20-5.40); RED CELL DISTRIBUTION WIDTH 13.9 % (11.5-14.5)
[2019-01-01 06:07] LABS: ANION GAP 5 (5-13); BLOOD UREA NITROGEN 10 mg/dl (7-20); CARBON DIOXIDE 27 mmol/L (21-31); CHLORIDE 100 mmol/L (97-110); CREATININE 0.64 mg/dl (0.44-1.00); GLUCOSE 131 mg/dl (70-220); POTASSIUM 4.3 mmol/L (3.5-5.1); SODIUM 132 mmol/L (135-144)
[2019-01-01] MEDS: LEVOFLOXACIN 500 MG TAB PO (08:21)
[2019-01-01] MEDS: LOSARTAN 50 MG TAB PO (08:22)
[2019-01-01] MEDS: METOPROLOL (XL) 100 MG TAB PO ×2 (08:22→21:21)
[2019-01-01] MEDS ORDERED: POLYETHYLENE GLYCOL 17 GM PACKET PO (13:00)
[2019-01-01] MEDS: DOCUSATE SODIUM 100 MG CAP PO ×2 (14:13→21:20)
[2019-01-02] MEDS: LEVOFLOXACIN 500 MG TAB PO (05:19)
[2019-01-02] MEDS: DOCUSATE SODIUM 100 MG CAP PO ×2 (08:24→20:42)
[2019-01-02] MEDS: LOSARTAN 50 MG TAB PO (08:24)
[2019-01-02] MEDS: METOPROLOL (XL) 100 MG TAB PO ×2 (08:25→20:43)
[2019-01-03] MEDS: LEVOFLOXACIN 500 MG TAB PO (05:28)
[2019-01-03 06:19] LABS: ADD MAN DIFF? NO
[2019-01-03 06:40] LABS: BASOPHILS % 0.4 % (0.0-2.0); EOSINOPHILS # 0.2 10^3/ul (0.0-0.5); EOSINOPHILS % 3.2 % (0.0-7.0); HEMATOCRIT 32.6 % (37.0-47.0); HEMOGLOBIN 10.5 g/dl (12.0-16.0); LYMPHOCYTES # 1.1 10^3/ul (0.8-2.9); LYMPHOCYTES % 14.7 % (15.0-51.0); MEAN CORPUSCULAR HEMOGLOBIN 28.9 pg (29.0-33.0); MEAN CORPUSCULAR HGB CONC 32.2 g/dl (32.0-37.0); MEAN CORPUSCULAR VOLUME 89.8 fl (82.0-101.0); MEAN PLATELET VOLUME 9.7 fl (7.4-10.4); MONOCYTE # 0.9 10^3/ul (0.3-0.9); MONOCYTES % 12.7 % (0.0-11.0); NEUTROPHIL # 4.9 10^3/ul (1.6-7.5); NEUTROPHILS % 68.4 % (39.0-77.0); PLATELET COUNT 293 10^3/UL (140-415); RED BLOOD COUNT 3.63 10^6/ul (4.20-5.40); RED CELL DISTRIBUTION WIDTH 14.1 % (11.5-14.5)
[2019-01-03 06:40] LABS: WHITE BLOOD COUNT 7.2 10^3/ul (4.8-10.8)
[2019-01-03 06:50] LABS: ANION GAP 8 (5-13); BLOOD UREA NITROGEN 9 mg/dl (7-20); CALCIUM 8.3 mg/dl (8.4-10.2); CARBON DIOXIDE 24 mmol/L (21-31); CHLORIDE 105 mmol/L (97-110); CREATININE 0.61 mg/dl (0.44-1.00); GLUCOSE 112 mg/dl (70-220); POTASSIUM 4.3 mmol/L (3.5-5.1); SODIUM 137 mmol/L (135-144)
[2019-01-03] MEDS: DOCUSATE SODIUM 100 MG CAP PO ×2 (08:33→20:36)
[2019-01-03] MEDS: LOSARTAN 50 MG TAB PO (08:34)
[2019-01-03] MEDS: METOPROLOL (XL) 100 MG TAB PO ×2 (08:34→20:37)
[2019-01-04] MEDS: LEVOFLOXACIN 500 MG TAB PO (05:58)
[2019-01-04] MEDS: LOSARTAN 50 MG TAB PO (09:08)
[2019-01-04] MEDS: DOCUSATE SODIUM 100 MG CAP PO ×2 (09:08→20:54)
[2019-01-04] MEDS: METOPROLOL (XL) 100 MG TAB PO ×2 (09:09→20:54)
[2019-01-04] MEDS: traMADol 50 MG TAB PO ×2 (13:42→21:05)
[2019-01-05 05:31] LABS: ADD MAN DIFF? NO
[2019-01-05] MEDS: LEVOFLOXACIN 500 MG TAB PO (05:34)
[2019-01-05] MEDS: traMADol 50 MG TAB PO ×2 (05:35→15:20)
[2019-01-05 05:50] LABS: WHITE BLOOD COUNT 8.7 10^3/ul (4.8-10.8)
[2019-01-05 05:50] LABS: BASOPHILS % 0.3 % (0.0-2.0); EOSINOPHILS # 0.2 10^3/ul (0.0-0.5); EOSINOPHILS % 2.8 % (0.0-7.0); HEMATOCRIT 33.1 % (37.0-47.0); HEMOGLOBIN 10.6 g/dl (12.0-16.0); LYMPHOCYTES # 1.2 10^3/ul (0.8-2.9); LYMPHOCYTES % 13.4 % (15.0-51.0); MEAN CORPUSCULAR HEMOGLOBIN 28.6 pg (29.0-33.0); MEAN CORPUSCULAR VOLUME 89.2 fl (82.0-101.0); MEAN PLATELET VOLUME 9.4 fl (7.4-10.4); MONOCYTE # 0.9 10^3/ul (0.3-0.9); MONOCYTES % 10.4 % (0.0-11.0); NEUTROPHIL # 6.3 10^3/ul (1.6-7.5); NEUTROPHILS % 72.2 % (39.0-77.0); PLATELET COUNT 326 10^3/UL (140-415); RED BLOOD COUNT 3.71 10^6/ul (4.20-5.40); RED CELL DISTRIBUTION WIDTH 14.2 % (11.5-14.5)
[2019-01-05 06:08] LABS: ANION GAP 9 (5-13); BLOOD UREA NITROGEN 10 mg/dl (7-20); CALCIUM 8.2 mg/dl (8.4-10.2); CARBON DIOXIDE 26 mmol/L (21-31); CHLORIDE 99 mmol/L (97-110); CREATININE 0.64 mg/dl (0.44-1.00); GLUCOSE 107 mg/dl (70-220); POTASSIUM 4.5 mmol/L (3.5-5.1); SODIUM 134 mmol/L (135-144)
[2019-01-05] MEDS ORDERED: METOCLOPRAMIDE 10 MG INJ IV (07:30)
[2019-01-05] MEDS: METOCLOPRAMIDE 10 MG INJ IM (07:53)
[2019-01-05] MEDS: METOPROLOL (XL) 100 MG TAB PO ×2 (08:57→21:19)
[2019-01-05] MEDS: DOCUSATE SODIUM 100 MG CAP PO ×2 (08:57→21:19)
[2019-01-05] MEDS: LOSARTAN 50 MG TAB PO (08:57)
[2019-01-05] MEDS: IOHEXOL 100 ML (10:51)
[2019-01-05] MEDS: SOD CHLORIDE 0.9% 100 ML (10:51)
[2019-01-05] MEDS: ACETAMINOPHEN 500 MG TAB PO (15:20)
[2019-01-06] MEDS: ACETAMINOPHEN 500 MG TAB PO ×2 (02:06→15:21)
[2019-01-06] MEDS: LEVOFLOXACIN 500 MG TAB PO (05:33)
[2019-01-06] MEDS: METOPROLOL (XL) 100 MG TAB PO ×2 (09:17→22:16)
[2019-01-06] MEDS: LOSARTAN 50 MG TAB PO (09:17)
[2019-01-06] MEDS: DOCUSATE SODIUM 100 MG CAP PO ×2 (09:17→22:15)
[2019-01-06] MEDS: traMADol 50 MG TAB PO (15:21)
[2019-01-07] MEDS: ACETAMINOPHEN 500 MG TAB PO (02:57)
[2019-01-07] MEDS: LEVOFLOXACIN 500 MG TAB PO (05:40)
[2019-01-07 06:15] LABS: ADD MAN DIFF? NO
[2019-01-07 06:22] LABS: WHITE BLOOD COUNT 6.2 10^3/ul (4.8-10.8)
[2019-01-07 06:22] LABS: BASOPHILS % 0.6 % (0.0-2.0); EOSINOPHILS # 0.3 10^3/ul (0.0-0.5); EOSINOPHILS % 4.2 % (0.0-7.0); HEMOGLOBIN 10.2 g/dl (12.0-16.0); LYMPHOCYTES # 1.2 10^3/ul (0.8-2.9); LYMPHOCYTES % 19.1 % (15.0-51.0); MEAN CORPUSCULAR HEMOGLOBIN 28.2 pg (29.0-33.0); MEAN CORPUSCULAR HGB CONC 31.9 g/dl (32.0-37.0); MEAN CORPUSCULAR VOLUME 88.4 fl (82.0-101.0); MEAN PLATELET VOLUME 9.4 fl (7.4-10.4); MONOCYTES % 15.3 % (0.0-11.0); NEUTROPHIL # 3.7 10^3/ul (1.6-7.5); NEUTROPHILS % 60.2 % (39.0-77.0); PLATELET COUNT 316 10^3/UL (140-415); RED BLOOD COUNT 3.62 10^6/ul (4.20-5.40); RED CELL DISTRIBUTION WIDTH 14.2 % (11.5-14.5)
[2019-01-07 07:02] LABS: ANION GAP 10 (5-13); BLOOD UREA NITROGEN 10 mg/dl (7-20); CALCIUM 8.6 mg/dl (8.4-10.2); CARBON DIOXIDE 26 mmol/L (21-31); CHLORIDE 99 mmol/L (97-110); CREATININE 0.55 mg/dl (0.44-1.00); GLUCOSE 104 mg/dl (70-220); POTASSIUM 4.5 mmol/L (3.5-5.1); SODIUM 135 mmol/L (135-144)
[2019-01-07] MEDS: DOCUSATE SODIUM 100 MG CAP PO ×2 (08:56→21:08)
[2019-01-07] MEDS: LOSARTAN 50 MG TAB PO (08:57)
[2019-01-07] MEDS: METOPROLOL (XL) 100 MG TAB PO ×2 (08:58→21:07)
[2019-01-07] MEDS ORDERED: LIDOCAINE 1% (MPF) 5 ML VIAL (14:47)
[2019-01-08] MEDS: LEVOFLOXACIN 500 MG TAB PO (06:11)
[2019-01-08] MEDS: traMADol 50 MG TAB PO (09:09)
[2019-01-08] MEDS: LOSARTAN 50 MG TAB PO (09:10)
[2019-01-08] MEDS: DOCUSATE SODIUM 100 MG CAP PO (09:10)
[2019-01-08] MEDS: METOPROLOL (XL) 100 MG TAB PO (09:10)
== END 2019-01-08 15:15 | disposition home or self-care (01) | DRG 674 ==
LOC: E/R 14:36 → PP2 18:47
PROC: 0W9H00Z Drainage of Retroperitoneum with Drainage Device, Open Approach (ICD-10-PCS; principal; 2018-12-30)
PROC: 0WPHX0Z Removal of Drainage Device from Retroperitoneum, External Approach (ICD-10-PCS; 2019-01-07)
DX: N15.1 Renal and perinephric abscess (principal); E87.1 Hypo-osmolality and hyponatremia; M06.9 Rheumatoid arthritis, unspecified; M19.90 Unspecified osteoarthritis, unspecified site; B96.20 Unspecified Escherichia coli [E. coli] as the cause of diseases classified elsewhere; M47.817 Spondylosis without myelopathy or radiculopathy, lumbosacral region; M43.16 Spondylolisthesis, lumbar region; I10 Essential (primary) hypertension; R53.1 Weakness; K59.00 Constipation, unspecified; Z91.81 History of falling
CPT/HCPCS: 36415; 36589; 70450; 71045; 74177; 76775; 77012; 80048; 80053; 81001; 84484; 85025; 85610; 85730; 87040; 87070; 87075; 87086; 93005; 93971; 96361; 96374; 96375; 97116; 97161; 97167; 97530; 97535; 99285-25

== ENCOUNTER → 2019-06-08 | Outpatient (CLI) | payer MEDICARE, BC ==
[2019-06-08] MEDS: SOD CHLORIDE 0.9% 100 ML (10:28)
== END | disposition home or self-care (01) ==
LOC: C/S 09:25
DX: K43.9 Ventral hernia without obstruction or gangrene (principal)
CPT/HCPCS: 74178